=== PATIENT | female | born 1955 | race Asian ===

== ENCOUNTER 2025-07-28 13:48 | Emergency (ER) | payer OTHER ==
[~2025-07-28] VITALS: Ht 157.5 cm; Wt 63.6 kg
[2025-07-28 13:51] VITALS: TEMP 98
[2025-07-28] MEDS ORDERED: AMLO-258 PO (13:54)
[2025-07-28] MEDS ORDERED: TELM1TAB86 PO (13:54)
[2025-07-28] MEDS ORDERED: LETR2.5 PO (13:54)
[2025-07-28 14:00] VITALS: BP 139/88; PULSE 79; RESP 18; O2SAT 96
[2025-07-28] MEDS ORDERED: TELM40TA8 PO (14:21)
[2025-07-28] MEDS ORDERED: AMLO5TAB66 PO (14:21)
[2025-07-28] MEDS ORDERED: ATOR10TA69 PO (14:21)
[2025-07-28] MEDS ORDERED: ALBU18HF12 IH (14:21)
[2025-07-28] MEDS ORDERED: GABA-1181 PO (14:21)
[2025-07-28] MEDS: ACETAMINOPHEN 325 MG TABLET PO ONE (14:45)
== END 2025-07-28 17:16 | disposition home or self-care (01) ==
LOC: EMS 13:52
DX: S09.90XA Unspecified injury of head, initial encounter (principal); I10 Essential (primary) hypertension; M25.511 Pain in right shoulder; M54.2 Cervicalgia; Z79.811 Long term (current) use of aromatase inhibitors; Z79.899 Other long term (current) drug therapy; Z85.3 Personal history of malignant neoplasm of breast; Z90.13 Acquired absence of bilateral breasts and nipples; W19.XXXA Unspecified fall, initial encounter; Y93.89 Activity, other specified; Y92.89 Other specified places as the place of occurrence of the external cause; Y99.8 Other external cause status
CPT/HCPCS: 70450; 72125; 99284

== ENCOUNTER 2025-09-30 09:48 | Emergency (ER) | payer OTHER ==
[~2025-09-30] VITALS: Ht 154.9 cm; Wt 54.5 kg
[~2025-09-30 09:48] MED LIST: ALBU18HF12 IH; AMLO5TAB66 PO; ATOR10TA69 PO; GABA-1181 PO; LETR2.5 PO; TELM40TA8 PO
[2025-09-30 09:50] VITALS: TEMP 97.9
[2025-09-30 10:26] LABS: PLATELET COUNT (AUTO) 225 K/uL (150-450); RED BLOOD CELL COUNT(AUTO) 4.62 MIL/uL (4.00-5.20); RED CELL DISTRIBUTION WIDTH 13.5 % (11.5-14.5); WHITE BLOOD COUNT (AUTO) 5.8 K/uL (4.5-11.0)
[2025-09-30 10:35] LABS: CALCIUM, TOTAL 8.8 mg/dL (8.8-10.5); CREATININE 0.74 mg/dL (0.60-1.30); GLOMERULAR FILTR. RATE CALC > 60 mL/min (>60); GLUCOSE,RANDOM 96 mg/dL (70-110); SODIUM SERUM 140 mmol/L (136-145); UREA NITROGEN, BLOOD 14 mg/dL (7-18)
[2025-09-30 10:44] LABS: TROPONIN I-HIGH SENSITIVITY 7 ng/L (<51)
[2025-09-30 10:45] LABS: APPEARANCE,URINE CLEAR (CLEAR); GLUCOSE, URINE (UA) NEGATIVE (NEGATIVE); LEUKOCYTE ESTERASE ,URINE NEGATIVE (NEGATIVE); NITRATE,URINE NEGATIVE (NEGATIVE); OCCULT BLOOD,URINE NEGATIVE (NEGATIVE); SPECIFIC GRAVITIY, URINE 1.011 (1.003-1.030)
[2025-09-30] MEDS: MECLIZINE HCL 25 MG TABLET PO ONE (11:28)
[2025-09-30] MEDS: ONDANSETRON HCL 4 MG/2 ML VIAL IVP ONE (11:28)
[2025-09-30 13:02] VITALS: BP 145/95; PULSE 62; RESP 18; O2SAT 98
[2025-09-30] MEDS ORDERED: MECL-302 PO (13:32)
== END 2025-09-30 14:23 | disposition home or self-care (01) ==
LOC: EMS 09:48
DX: R42 Dizziness and giddiness (principal); I10 Essential (primary) hypertension; R06.02 Shortness of breath; Z90.13 Acquired absence of bilateral breasts and nipples; Z85.3 Personal history of malignant neoplasm of breast; Z79.899 Other long term (current) drug therapy; Z79.811 Long term (current) use of aromatase inhibitors
CPT/HCPCS: 99285; 96374; 71045; 80048; 81003; 83880; 84484; 85025; 85610; 85730; 36415; 93005; J2405